=== PATIENT | male | born 1940 | race Caucasian/White ===

== ENCOUNTER 2016-05-22 13:28 | Day surgery (SDC) | payer OTHER, MEDICARE ==
[~2016-05-22] VITALS: Ht 175.3 cm; Wt 94.8 kg
[~2016-05-22 13:28] MED LIST: AMLODIPINE BES2.5 MG PO; LO-DOSE ASPIRIN81 M2 PO; MECLIZINE HCL25 MG PO; PRAVASTATIN SOD40 MG PO
== END 2016-05-22 16:19 | disposition home or self-care (01) ==
LOC: CATH 13:28
PROC: 0JPT32Z Removal of Monitoring Device from Trunk Subcutaneous Tissue and Fascia, Percutaneous Approach (ICD-10-PCS; principal; 2016-05-22)
DX: Z46.89 Encounter for fitting and adjustment of other specified devices (principal); I45.10 Unspecified right bundle-branch block; R00.2 Palpitations; I10 Essential (primary) hypertension; E78.5 Hyperlipidemia, unspecified
CPT/HCPCS: J0690; J1200; J2250; J3010; S0020